=== PATIENT | female | born 1950 | race Caucasian/White ===

== ENCOUNTER 2019-04-29 13:54 | Emergency (ER) | payer MEDICARE, BC ==
--- NOTE | 2019-04-29 14:29 | EDM.PDOC ---
ED HPI GENERAL MEDICAL PROBLEM - General Chief Complaint: Neuro Symptoms/Deficits Stated Complaint: MEDICAL VIA NORTH Time Seen by Provider: 04/29/19 14:15 Source of Information: Reports: Patient, EMS History Limitations: Reports: No Limitations - History of Present Illness INITIAL COMMENTS - FREE TEXT/NARRATIVE: 69 yo female with a known seizure disorder was referred by EMS from the clinic to the ER for 2 min generalized seizure. She had no tongue biting or urinary incontinence. Has not missed any of her Keppra. Does have a neurologist in [place] she is seeing next week. Has seizures since experiencing heat stroke she says. Heat can now be a trigger for her to have seizures. Has no injuries from today's seizure. Seizures started 10 yrs ago. 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) - Related Data Allergies Allergy/AdvReac Type Severity Reaction Status Date / Time Penicillins Allergy Rash Verified 04/29/19 14:24 poison teresa scrub Allergy Hives Uncoded 04/29/19 14:24 poison oak Allergy Hives Uncoded 04/29/19 14:24 Home Meds: Home Meds Aspirin [Halfprin] 81 mg PO DAILY 04/29/19 [History] Celecoxib [CeleBREX] 100 mg PO BID 04/29/19 [History] Estradiol [Estrace] 0.5 mg PO DAILY 04/29/19 [History] FLUoxetine [PROzac] 10 mg PO DAILY 04/29/19 [History] Omeprazole 20 mg PO BID 04/29/19 [History] Pravastatin [Pravachol] 40 mg PO DAILY 04/29/19 [History] SUMAtriptan [Imitrex] 25 mg PO ASDIRECTED PRN 04/29/19 [History] clonazePAM [Clonazepam] 1 mg PO BID 04/29/19 [History] diphenhydrAMINE [Benadryl] 25 mg PO BEDTIME PRN 04/29/19 [History] hydroCHLOROthiazide [Hydrochlorothiazide] 25 mg PO DAILY 04/29/19 [History] levETIRAcetam [Levetiracetam] 750 mg PO BID 04/29/19 [History] traZODone HCl [Trazodone HCl] 75 mg PO BEDTIME 04/29/19 [History] ED ROS GENERAL - Review of Systems Review Of Systems: See Below Constitutional: Reports: No Symptoms HEENT: Reports: No Symptoms Respiratory: Reports: No Symptoms Cardiovascular: Reports: No Symptoms GI/Abdominal: Reports: No Symptoms : Reports: No Symptoms Musculoskeletal: Reports: No Symptoms Skin: Reports: No Symptoms Neurological: Reports: Seizure - Physical Exam Exam: See Below Exam Limited By: No Limitations General Appearance: Alert, WD/WN, No Apparent Distress Eye Exam: Bilateral Eye: Normal Inspection Ears: Normal External Exam, Normal Canal, Hearing Grossly Normal Nose: Normal Inspection, No Blood Throat/Mouth: Normal Inspection, Normal Lips, Normal Oropharynx, Normal Voice, No Airway Compromise, Other (tongue uninjured.) Head Exam: Atraumatic, Normocephalic Neck: Normal Inspection Respiratory/Chest: No Respiratory Distress, Lungs Clear, Normal Breath Sounds, No Accessory Muscle Use Cardiovascular: Regular Rate, Rhythm, No Edema GI/Abdominal: Normal Bowel Sounds, Soft, Non-Tender, No Distention Neuro Exam (Abbreviated): Alert, Oriented, CN II-XII Intact, Normal Cognition, No Motor/Sensory Deficits Extremities: Normal Inspection, Normal Range of Motion, Non-Tender, Slow Capillary Refill Psychiatric: Normal Affect, Normal Mood Skin Exam: Warm, Dry, Intact, Normal Color, No Rash Course - Vital Signs Last Recorded V/S: Last Vital Signs Temp 35.9 C 04/29/19 14:21 Pulse 102 H 04/29/19 14:21 Resp 24 H 04/29/19 14:21 BP 173/69 H 04/29/19 14:21 Pulse Ox 95 04/29/19 14:21 Departure - Departure Time of Disposition: 15:03 Disposition: Home, Self-Care 01 Condition: Good Clinical Impression: Seizure - Discharge Information *PRESCRIPTION DRUG MONITORING PROGRAM REVIEWED*: No *COPY OF PRESCRIPTION DRUG MONITORING REPORT IN PATIENT FRANKLIN: No Instructions: Seizure, Adult, [id number] Referrals: PCP,None [Primary Care Provider] - Forms: ED Department Discharge Additional Instructions: Continue your current medications. Recheck with one of your providers as needed. No driving.
== END 2019-04-29 15:26 | disposition home or self-care (01) ==
LOC: JP.ED 13:54
DX: G40.409 Other generalized epilepsy and epileptic syndromes, not intractable, without status epilepticus (principal); Z88.0 Allergy status to penicillin; Z79.899 Other long term (current) drug therapy; Z79.82 Long term (current) use of aspirin
CPT/HCPCS: 99284

== ENCOUNTER 2020-05-31 15:15 | Emergency (ER) | payer MEDICARE, BC ==
--- NOTE | 2020-05-31 15:53 | EDM.PDOC ---
ED HPI GENERAL MEDICAL PROBLEM - General Chief Complaint: General Stated Complaint: MEDICAL VIA NORTH Time Seen by Provider: 05/31/20 15:40 Source of Information: Reports: Patient, EMS, Old Records, RN History Limitations: Reports: No Limitations - History of Present Illness INITIAL COMMENTS - FREE TEXT/NARRATIVE: 70 yo female in poor physical condition was standing outside today without a hat watering a garden for approx 2 hrs and got light headed and weak. EMS was ultimately called and she had a 500 ml bag of NS started. This is mostly infused on arrival and she is feeling better. Onset: Gradual Onset Date: 05/31/20 Duration: Minutes: Location: Reports: Generalized Quality: Reports: Other (no pain) Severity: Moderate Improves with: Reports: Other (fluids, getting out of the sun) Worsens with: Reports: Other (sun exposure) Context: Reports: Other (See HPI) Associated Symptoms: Reports: Weakness (in legs transiently). 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 - Related Data Allergies Allergy/AdvReac Type Severity Reaction Status Date / Time Penicillins Allergy Rash Verified 05/31/20 15:17 poison teresa scrub Allergy Hives Uncoded 05/31/20 15:17 poison oak Allergy Hives Uncoded 05/31/20 15:17 Home Meds: Home Meds Aspirin [Halfprin] 81 mg PO DAILY 04/29/19 [History] Celecoxib [CeleBREX] 100 mg PO BID 04/29/19 [History] FLUoxetine [PROzac] 10 mg PO DAILY 04/29/19 [History] Omeprazole 20 mg PO BID 04/29/19 [History] Pravastatin [Pravachol] 40 mg PO DAILY 04/29/19 [History] clonazePAM [Clonazepam] 1 mg PO BID 04/29/19 [History] diphenhydrAMINE [Benadryl] 25 mg PO BEDTIME PRN 04/29/19 [History] estradioL [Estrace] 0.5 mg PO DAILY 04/29/19 [History] hydroCHLOROthiazide [Hydrochlorothiazide] 25 mg PO DAILY 04/29/19 [History] levETIRAcetam [Levetiracetam] 750 mg PO BID 04/29/19 [History] traZODone HCl [Trazodone HCl] 75 mg PO BEDTIME 04/29/19 [History] Past Medical History HEENT History: Reports: Impaired Vision Cardiovascular History: Reports: High Cholesterol, Hypertension Gastrointestinal History: Reports: GERD Genitourinary History: Reports: None 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 bakers cyst behind both knees Neurological History: Reports: Migraines, Seizure, Other (See Below) Other Neuro History: essential tremor Psychiatric History: Reports: Anxiety, Depression, Panic Attack, Other (See Below) Other Psychiatric History: insomnia Other Hematologic History: vit D deficiency - Past Surgical History Head Surgeries/Procedures: Reports: None HEENT Surgical History: Reports: None Cardiovascular Surgical History: Reports: None GI Surgical History: Reports: None Female Surgical History: Reports: Hysterectomy, Salpingo-Oophorectomy Neurological Surgical History: Reports: None Musculoskeletal Surgical History: Reports: None Dermatological Surgical History: Reports: None Social & Family History - Tobacco Use Smoking Status *Q: Never Smoker Second Hand Smoke Exposure: No - Caffeine Use Caffeine Use: Reports: Tea - Recreational Drug Use Recreational Drug Use: No ED ROS GENERAL - Review of Systems Review Of Systems: See Below Constitutional: Reports: Weakness (generalized, darrell legs) HEENT: Reports: Vision Change (slightly blurry vision transiently) Respiratory: Reports: No Symptoms Cardiovascular: Reports: Lightheadedness Endocrine: Reports: No Symptoms GI/Abdominal: Reports: No Symptoms : Reports: No Symptoms Musculoskeletal: Reports: No Symptoms Skin: Reports: No Symptoms Neurological: Reports: No Symptoms Psychiatric: Reports: No Symptoms ED EXAM, GENERAL - Physical Exam Exam: See Below Exam Limited By: No Limitations General Appearance: Alert, WD/WN, No Apparent Distress Eye Exam: Bilateral Eye: Normal Inspection Ears: Normal External Exam, Normal Canal, Hearing Grossly Normal Ear Exam: Bilateral Ear: Auricle Normal, Canal Normal Nose: Normal Inspection, No Blood Throat/Mouth: Normal Inspection, Normal Lips, Normal Oropharynx, Normal Voice, No Airway Compromise Head: Atraumatic, Normocephalic Neck: Normal Inspection Respiratory/Chest: No Respiratory Distress, Lungs Clear, Normal Breath Sounds, No Accessory Muscle Use Cardiovascular: Regular Rate, Rhythm, No Edema GI/Abdominal: Normal Bowel Sounds, Soft, Non-Tender, No Distention Back Exam: Normal Inspection Extremities: Normal Inspection, Normal Range of Motion, Non-Tender, No Pedal Edema Neurological: Alert, Oriented, CN II-XII Intact, Normal Cognition, No Motor/Sensory Deficits Psychiatric: Normal Affect, Normal Mood Skin Exam: Warm, Dry, Intact, Normal Color, No Rash Course - Vital Signs Last Recorded V/S: Last Vital Signs Temp 36.5 C 05/31/20 15:29 Pulse 86 05/31/20 15:29 Resp 19 05/31/20 15:29 BP 153/61 H 05/31/20 15:29 Pulse Ox 96 05/31/20 15:29 Orthostatic Blood Pressure [ 144/66 Standing] Orthostatic Blood Pressure [ 153/63 Sitting] Orthostatic Blood Pressure [ 163/59 Supine] - Orders/Labs/Meds Orders: Active Orders 24 hr Category Date Time Status Orthostatic Vital Signs [RC] ASDIRECTED Care 05/31/20 15:32 Active Labs: Laboratory Tests 05/31/20 05/31/20 Range/Units 15:40 15:51 Sodium 140 (140-148) mmol/L Potassium 4.5 (3.6-5.2) mmol/L Chloride 103 (100-108) mmol/L Carbon Dioxide 28 (21-32) mmol/L Anion Gap 9.2 (5.0-14.0) mmol/L BUN 19 H (7-18) mg/dL Creatinine 1.0 (0.6-1.0) mg/dL Est Cr Clr Drug Dosing 46.50 mL/min Estimated GFR (MDRD) 55 L (>60) Glucose 90 (74-106) mg/dL Calcium 8.6 (8.5-10.1) mg/dL Urine Color Yellow (YELLOW) Urine Appearance Clear (CLEAR) Urine pH 6.0 (5.0-8.0) Ur Specific [place] 1.015 (1.008-1.030) Urine Protein Negative (NEGATIVE) mg/dL Urine Glucose (UA) Negative (NEGATIVE) mg/dL Urine Ketones Negative (NEGATIVE) mg/dL Urine Occult Blood Negative (NEGATIVE) Urine Nitrite Negative (NEGATIVE) Urine Bilirubin Negative (NEGATIVE) Urine Urobilinogen 0.2 (0.2-1.0) EU/dL Ur Leukocyte Esterase Negative (NEGATIVE) Departure - Departure Time of Disposition: 16:26 Disposition: Home, Self-Care 01 Condition: Good Clinical Impression: Orthostatic hypotension - Discharge Information *PRESCRIPTION DRUG MONITORING PROGRAM REVIEWED*: No *COPY OF PRESCRIPTION DRUG MONITORING REPORT IN PATIENT FRANKLIN: No Referrals: Maye Amezcua PA-C [Primary Care Provider] - Forms: ED Department Discharge Additional Instructions: Wear a hat when outside. Drink enough fluids so that your urine is light yellow in color. Recheck with your provider as needed. Sepsis Event Note (ED) - Evaluation Sepsis Screening Result: No Definite Risk - Focused Exam Vital Signs: Vital Signs Temp Pulse Resp BP Pulse Ox 05/31/20 15:29 36.5 C 86 19 153/61 H 96 05/31/20 15:16 36.5 C 86 19 153/61 H 96 - My Orders Last 24 Hours: My Active Orders 05/31/20 15:32 Orthostatic Vital Signs [RC] ASDIRECTED - Assessment/Plan Last 24 Hours: My Active Orders 05/31/20 15:32 Orthostatic Vital Signs [RC] ASDIRECTED
== END 2020-05-31 17:07 | disposition home or self-care (01) ==
LOC: JP.ED 15:15
DX: I95.1 Orthostatic hypotension (principal); E78.00 Pure hypercholesterolemia, unspecified; I10 Essential (primary) hypertension; K21.9 Gastro-esophageal reflux disease without esophagitis; R56.9 Unspecified convulsions; F41.9 Anxiety disorder, unspecified; F32.9 Major depressive disorder, single episode, unspecified; Z79.82 Long term (current) use of aspirin; Z79.899 Other long term (current) drug therapy; Z88.0 Allergy status to penicillin; Z91.048 Other nonmedicinal substance allergy status
CPT/HCPCS: 36415; 80048; 81003; 99285

== ENCOUNTER 2022-12-21 12:33 | Emergency (ER) | payer MEDICARE, BC | END 2022-12-21 13:44 | disposition home or self-care (01) | LOC: JP.ED 12:33 | DX: S06.9X9A Unspecified intracranial injury with loss of consciousness of unspecified duration, initial encounter (principal); I10 Essential (primary) hypertension; E78.5 Hyperlipidemia, unspecified; K21.9 Gastro-esophageal reflux disease without esophagitis; E78.00 Pure hypercholesterolemia, unspecified; Z88.0 Allergy status to penicillin; Z91.048 Other nonmedicinal substance allergy status; Z79.82 Long term (current) use of aspirin; Z79.899 Other long term (current) drug therapy; W00.0XXA Fall on same level due to ice and snow, initial encounter | CPT/HCPCS: 70450; 70450-26; 99283 ==

== ENCOUNTER 2023-12-30 14:57 | Emergency (ER) | payer BC, MEDICARE ==
[2023-12-30] MEDS ORDERED: lamoTRIgine 100 MG Tab PO ONE (14:58)
[2023-12-30 15:11] LABS: BASOPHILS PERCENT AUTO 0.4 % (0.1-1.3); EOSINOPHILS ABSOLUTE AUTO 0.25 K/uL (0.00-0.40); EOSINOPHILS PERCENT AUTO 4.6 % (0.0-5.4); HEMATOCRIT 36.6 % (34.3-46.0); HEMOGLOBIN 12.1 g/dL (11.2-15.5); IMMATURE GRAN PERCENT AUTO 0.4 % (0.0-0.7); LYMPHOCYTES ABSOLUTE AUTO 1.56 K/uL (0.8-3.3); LYMPHOCYTES PERCENT AUTO 28.9 % (11.4-47.7); MEAN CORPUSCULAR HEMOGLOBIN 28.4 pg (31.6-35.5); MEAN CORPUSCULAR HGB CONC 33.1 g/dL (31.6-35.5); MEAN CORPUSCULAR VOLUME 85.9 fL (81.4-99.0); NEUTROPHILS ABSOLUTE AUTO 2.85 K/uL (1.0-7.6); NEUTROPHILS PERCENT AUTO 52.7 % (40.0-78.1); PLATELET COUNT,PLT 247 K/uL (130-375); RED BLOOD CELL COUNT 4.26 M/uL (3.77-5.24); WHITE BLOOD CELL COUNT,WBC 5.4 K/uL (3.2-11.0)
[2023-12-30 15:12] LABS: BASOPHILS ABSOLUTE AUTO 0.02 K/uL (0.00-0.10); IMMATURE GRAN ABSOLUTE AUTO 0.02 K/uL (0.00-0.23)
[2023-12-30] MEDS: levETIRAcetam 250 MG Tab PO SCH (15:27)
[2023-12-30 15:28] LABS: ANION GAP 11.4 mmol/L (5.0-14.0); CREATININE 1.1 mg/dL (0.6-1.0); EST CRCL DRUG DOSING (CG) 41.36 mL/min; POTASSIUM,K 3.7 mmol/L (3.6-5.2)
== END 2023-12-30 17:15 | disposition home or self-care (01) ==
LOC: JP.ED 14:57
DX: G25.0 Essential tremor (principal); R55 Syncope and collapse; I10 Essential (primary) hypertension; E78.00 Pure hypercholesterolemia, unspecified; K21.9 Gastro-esophageal reflux disease without esophagitis; Z88.0 Allergy status to penicillin; Z91.048 Other nonmedicinal substance allergy status; Z79.899 Other long term (current) drug therapy
CPT/HCPCS: 36415; 80048; 83605; 85025; 93005; 99284; A9270

== ENCOUNTER 2025-04-05 11:54 | Emergency (ER) | payer MEDICARE ==
[2025-04-05] MEDS: Albuterol/Ipratropium 3.0-0.5 MG/3 ML Neb Soln NEB ONE (12:29)
== END 2025-04-05 12:59 | disposition home or self-care (01) ==
LOC: JP.ED 11:54
DX: J45.31 Mild persistent asthma with (acute) exacerbation (principal); I10 Essential (primary) hypertension; E78.00 Pure hypercholesterolemia, unspecified; J45.909 Unspecified asthma, uncomplicated; K21.9 Gastro-esophageal reflux disease without esophagitis; Z86.16 Personal history of COVID-19; Z90.710 Acquired absence of both cervix and uterus; Z79.899 Other long term (current) drug therapy; Z88.0 Allergy status to penicillin; Z91.048 Other nonmedicinal substance allergy status
CPT/HCPCS: 94640; 99285; A9270

== ENCOUNTER 2025-05-17 15:21 | Emergency (ER) | payer MEDICARE ==
[2025-05-17] MEDS ORDERED: Sodium Chloride 0.9% 10 ML Syringe FLUSH PRN (16:04)
[2025-05-17 16:21] LABS: BASOPHILS ABSOLUTE AUTO 0.03 K/uL (0.00-0.10); BASOPHILS PERCENT AUTO 0.5 % (0.1-1.3); EOSINOPHILS ABSOLUTE AUTO 0.27 K/uL (0.00-0.40); EOSINOPHILS PERCENT AUTO 4.7 % (0.0-5.4); IMMATURE GRAN PERCENT AUTO 0.2 % (0.0-0.7); LYMPHOCYTES ABSOLUTE AUTO 1.32 K/uL (0.8-3.3); LYMPHOCYTES PERCENT AUTO 23.2 % (11.4-47.7); MONOCYTES ABSOLUTE AUTO 0.63 K/uL (0.20-0.90); MONOCYTES PERCENT AUTO 11.1 % (3.3-12.6); NEUTROPHILS ABSOLUTE AUTO 3.44 K/uL (1.0-7.6); NEUTROPHILS PERCENT AUTO 60.3 % (40.0-78.1); PLATELET COUNT,PLT 259 K/uL (130-375); RED BLOOD CELL COUNT 4.45 M/uL (3.77-5.24); WHITE BLOOD CELL COUNT,WBC 5.7 K/uL (3.2-11.0)
[2025-05-17 16:22] LABS: IMMATURE GRAN ABSOLUTE AUTO 0.01 K/uL (0.00-0.23)
[2025-05-17 16:35] LABS: BLOOD UREA NITROGEN,BUN 25.0 mg/dL (7-18); CARBON DIOXIDE,CO2 30.0 mmol/L (21-32); CHLORIDE,CL 99.0 mmol/L (100-108); CREATININE 1.3 mg/dL (0.6-1.0); EST CRCL DRUG DOSING (CG) 33.28 mL/min; ESTIMATED GFR 43.0 mL/min (>60); GLUCOSE RANDOM 117.0 mg/dL (74-106); POTASSIUM,K 3.5 mmol/L (3.6-5.2); SODIUM,NA 137.0 mmol/L (140-148)
== END 2025-05-17 18:48 | disposition home or self-care (01) ==
LOC: JP.ED 15:21
DX: E86.0 Dehydration (principal); I10 Essential (primary) hypertension; E78.00 Pure hypercholesterolemia, unspecified; J45.909 Unspecified asthma, uncomplicated; K21.9 Gastro-esophageal reflux disease without esophagitis; Z90.710 Acquired absence of both cervix and uterus; Z79.899 Other long term (current) drug therapy; Z88.0 Allergy status to penicillin; Z91.048 Other nonmedicinal substance allergy status
CPT/HCPCS: 36415; 80048; 85025; 96360; 96361; 99285; J7040

== ENCOUNTER 2025-09-29 15:11 | Emergency (ER) | payer MEDICARE ==
[2025-09-29 16:06] LABS: BASOPHILS ABSOLUTE AUTO 0.03 K/uL (0.00-0.10); BASOPHILS PERCENT AUTO 0.3 % (0.1-1.3); EOSINOPHILS ABSOLUTE AUTO 0.18 K/uL (0.00-0.40); EOSINOPHILS PERCENT AUTO 2.1 % (0.0-5.4); IMMATURE GRAN ABSOLUTE AUTO 0.03 K/uL (0.00-0.23); IMMATURE GRAN PERCENT AUTO 0.3 % (0.0-0.7); LYMPHOCYTES ABSOLUTE AUTO 0.75 K/uL (0.8-3.3); LYMPHOCYTES PERCENT AUTO 8.6 % (11.4-47.7); MONOCYTES ABSOLUTE AUTO 1.39 K/uL (0.20-0.90); MONOCYTES PERCENT AUTO 15.9 % (3.3-12.6); NEUTROPHILS ABSOLUTE AUTO 6.34 K/uL (1.0-7.6); NEUTROPHILS PERCENT AUTO 72.8 % (40.0-78.1); PLATELET COUNT,PLT 263 K/uL (130-375); RED BLOOD CELL COUNT 4.47 M/uL (3.77-5.24); WHITE BLOOD CELL COUNT,WBC 8.7 K/uL (3.2-11.0)
[2025-09-29 16:08] LABS: APPEARANCE,URINE CLEAR (CLEAR); GLUCOSE,URINE NEGATIVE (NEGATIVE); OCCULT BLOOD,URINE TRACE-INTACT (NEGATIVE)
[2025-09-29 16:20] LABS: SQUAMOUS EPITHELIAL CELLS,UR FEW /HPF; UROTHELIAL CELLS,URINE NOT SEEN /HPF
[2025-09-29 16:28] LABS: A/G RATIO 1.0 (1.2-2.2); ALANINE AMINOTRANSFERASE,ALT 49 U/L (12-78); ASPARTATE AMNIOTRANSFERASE,AST 30 U/L (15-37); BILIRUBIN TOTAL 0.3 mg/dL (0.2-1.0); BLOOD UREA NITROGEN,BUN 9 mg/dL (7-18); CARBON DIOXIDE,CO2 28 mmol/L (21-32); CHLORIDE,CL 100 mmol/L (100-108); CREATININE 1.0 mg/dL (0.6-1.0); ESTIMATED GFR 59 mL/min (>60); GLUCOSE RANDOM 140 mg/dL (74-106); POTASSIUM,K 4.0 mmol/L (3.6-5.2); PROTEIN TOTAL,TP 8.1 g/dL (6.4-8.2); SODIUM,NA 139 mmol/L (140-148)
[2025-09-29 16:30] LABS: CREATINE KINASE,CK 99.0 U/L (26-192)
== END 2025-09-29 17:28 | disposition home or self-care (01) ==
LOC: JP.ED 15:11
DX: G40.909 Epilepsy, unspecified, not intractable, without status epilepticus (principal); I10 Essential (primary) hypertension; E78.00 Pure hypercholesterolemia, unspecified; K21.9 Gastro-esophageal reflux disease without esophagitis; J45.909 Unspecified asthma, uncomplicated; Z90.710 Acquired absence of both cervix and uterus; Z88.0 Allergy status to penicillin; Z91.048 Other nonmedicinal substance allergy status
CPT/HCPCS: 36415; 80053; 81001; 82550; 83605; 83735; 85025; 86140; 99284